=== PATIENT | female | born 1995 | race Caucasian/White ===

== ENCOUNTER 2021-12-08 14:01 | Emergency (ER) | payer OTHER ==
[2021-12-08] MEDS ORDERED: Lorazepam 2 MG/ML VIAL ONE ×2 (14:11→14:32)
[2021-12-08] MEDS ORDERED: levETIRAcetam 500 MG/5 ML VIAL ONE (14:19)
[2021-12-08 14:25] LABS: #Basophils 0.1 10x3/uL (0.0-0.2); #Monocytes 0.5 10x3/uL (0.0-1.1); #Neutrophils 6.4 10x3/uL (1.5-8.4); %Basophils 0.6 % (0.0-2.0); %Eosinophils 0.4 % (0.0-6.0); %Lymphocytes 17.7 % (18.0-47.0); %Neutrophils 75.1 % (40.0-75.0); Hemoglobin 13.7 g/dL (12.0-15.5); Mean Corpuscular Hemoglobin 29.8 pg (27.0-33.0); Mean Corpuscular Volume 87.8 fl (81.6-98.3); Mean Platelet Volume 11.3 fl (7.4-10.4); Platelet Count 260 10x3/uL (150-450); RBC Distribution Width 12.6 % (11.5-14.5); Red Blood Cell (RBC) Count 4.59 10x6/uL (3.90-5.03); White Blood Cell (WBC) Count 8.5 10x3/uL (3.5-10.5)
[2021-12-08 14:40] LABS: PTT 27.3 sec (22.0-33.0); Prothrombin Time 11.3 sec (9.5-12.1)
[2021-12-08 14:49] LABS: BHCG - Serum POSITIVE (NEGATIVE); Pregs Control Background? CLEAR/WHITE (CLR/WHITE); Pregs Control Bar Appear? YES (CONTROL BAR)
[2021-12-08 15:19] LABS: ALT (SGPT) 11 U/L (8-55); AST (SGOT) 17 U/L (5-34); Albumin 4.4 g/dL (3.5-5.0); Alcohol Less than 10 mg/dL (Less than 10); Alkaline Phosphatase 70 U/L (40-110); Anion Gap 13 mmol/L (10-20); BUN (Urea Nitrogen) 11 mg/dL (7.0-18.7); Bilirubin, Total 0.7 mg/dL (0.2-1.2); Calc. Creatinine Clearance 0 mL/min (70-130); Calcium 9.2 mg/dL (7.8-10.44); Carbon Dioxide 21 mmol/L (22-29); Chloride 109 mmol/L (98-107); Globulin 2.5 g/dL (2.4-3.5); Glucose 96 mg/dL (70-105); Potassium 3.6 mmol/L (3.5-5.1); Protein, Total 6.9 g/dL (6.0-8.3); Sodium 139 mmol/L (136-145)
[2021-12-08] MEDS ORDERED: Propofol 1,000 MG/100 ML VIAL IV ONE (16:00)
[2021-12-08 17:06] LABS: Bilirubin Neg (Negative); Blood, Urine 25 (Negative); Clarity Clear (Clear); Glucose, Urine (Dipstick) Normal (Negative); Ketone, Urine Negative (Negative); Leukocyte Negative (Negative); Nitrite Negative (Negative); Protein, Urine (Dipstick) 15 mg/dl (Neg-Trace); Specific Gravity, Urine 1.015 (1.002-1.036); Urobilinogen Normal mg/dL (Less than 2)
[2021-12-08 17:10] LABS: Amphetamine Not Detected (NotDetected); Barbiturates Screen Not Detected (NotDetected); Benzodiazepine Screen Detected (NotDetected); Cocaine Metabolite Screen Not Detected (NotDetected); Methadone Not Detected (NotDetected); Methamphetamine Not Detected (NotDetected); Opiate Screen Not Detected (NotDetected); Oxycodone Screen Not Detected (NotDetected); Phencyclidine (PCP) Not Detected (NotDetected); THC/Cannabinoid Screen Not Detected (NotDetected); Tricyclic Screen Detected (NotDetected)
[2021-12-08] MEDS ORDERED: Electrolyte Replacement Protocol 1 EACH FS ONE (17:28)
[2021-12-08] MEDS ORDERED: Ventilator Sedation Protocol 1 EACH FS ONE (17:28)
[2021-12-08] MEDS ORDERED: levETIRAcetam in NS 100 ML ONE (17:35)
[2021-12-08 17:36] LABS: SARS-CoV-2 NAA Rapid Test Not Detected (NotDetected)
[2021-12-08 17:46] LABS: Squamous Epithelial 0-3 HPF (0-3); WBC/HPF 0-3 HPF (0-3)
[2021-12-08 17:47] LABS: Bacteria/HPF 2+ HPF (None Seen); Mucous/LPF 3+ LPF (<2+)
[2021-12-08 17:51] LABS: Acetaminophen Less than 6.0 mcg/mL (10.0-30.0); Alcohol Less than 10 mg/dL (Less than 10); CK (CPK) 66 U/L (29-168); Salicylate Less than 8.0 mg/dL (15.0-30.0)
[2021-12-08] MEDS ORDERED: Rocuronium Bromide 10 MG/ML (10ML VIAL) ONE (23:34)
[2021-12-09] MEDS ORDERED: Pantoprazole 40 MG VIAL IVP SCH (09:00)
== END 2021-12-08 21:27 | disposition left against medical advice (07) ==
LOC: CSHERS 14:01 → EDBD 14:01 → CSHERS 21:27
DX: R56.9 Unspecified convulsions (principal); R06.89 Other abnormalities of breathing
CPT/HCPCS: 31500; 36415; 36416; 51702; 70450; 71045; 71260; 72125; 72170; 74177; 80053; 80306; 80307; 81003; 81015; 82550; 84702; 84703; 85025; 85610; 85730; 93005; 94003; 94760; 96365; 96366; 96375; 96376; 99292; G0390; J1953; J2060; J2704; U0002